=== PATIENT | female | born 1990 | race Caucasian/White ===

== ENCOUNTER 2018-02-21 15:29 | Emergency (ER) | payer OTHER ==
[~2018-02-21] VITALS: Ht 172.7 cm; Wt 59.0 kg
[2018-02-21 15:32] VITALS: BP 121/65; Ht 172.7 cm; Wt 59.0 kg
== END 2018-02-21 17:20 | disposition home or self-care (01) ==
LOC: ED 15:29
DX: S05.02XA Injury of conjunctiva and corneal abrasion without foreign body, left eye, initial encounter (principal); H53.8 Other visual disturbances; J06.9 Acute upper respiratory infection, unspecified; W25.XXXA Contact with sharp glass, initial encounter; Y93.89 Activity, other specified; Y92.89 Other specified places as the place of occurrence of the external cause; Y99.8 Other external cause status